=== PATIENT | female | born 1985 | race African-American/Black ===

== ENCOUNTER 2016-05-09 20:04 | Emergency (ER) | payer SELFPAY ==
[~2016-05-09 20:04] MED LIST: BACTRIM DS TAB1 EAC2 PO
[2016-05-09] MEDS ORDERED: TESSALON PERLE100 M1 PO (20:57)
[2016-05-09] MEDS ORDERED: NAPROSYN500 M1 PO (20:57)
[2016-05-09] MEDS ORDERED: ALBUTEROL2.5 MG/3 M INH (20:57)
== END 2016-05-09 21:17 ==
LOC: EDMED 20:04
DX: J06.9 Acute upper respiratory infection, unspecified (principal); R09.1 Pleurisy; F17.210 Nicotine dependence, cigarettes, uncomplicated